=== PATIENT | female | born 1985 | race American Indian/Alaskan Native ===

== ENCOUNTER 2016-10-29 10:26 | Inpatient (IN) | payer MEDICAID ==
[2016-10-29] MEDS ORDERED: SUBLIMAZE IV PRN (12:23)
[2016-10-29] MEDS ORDERED: ZOFRAN IV PRN (12:23)
[2016-10-29] MEDS ORDERED: MINERAL OIL PO PRN (12:23)
[2016-10-29] MEDS ORDERED: BRETHINE SUB-Q PRN (13:04)
[2016-10-29] MEDS ORDERED: ePHEDrine SULFATE IV PRN ×2 (13:05→18:36)
--- NOTE | 2016-10-29 13:31 | History and Physical Report ---
History of Present Illness Date of examination: 10/29/16 (IOL @ 41 weeks) Date of admission: 10/29/16 10:26 History of present illness: EDC Confirmation: 10/19/2016 Gestational Age: 12 weeks Past History : 6 Term Births: 4 Living Children: 4 # 5 Delivery date: 02/08/2015 Weeks Gestation: 39 labor: no Delivery type: Anesthesia type: epidural Delivery location: [place] Infant Sex: Male weight: 7-3 Name: Norris Bull 3rd Past Medical History: prob Graves disease--no meds Past Surgical History: negative Past Medical History Anesthesia Complications: negative Anemia: negative Autoimmune Disorder: negative Bleeding Disorder: negative Blood Transfusions: negative Breast Disease: negative Diabetes: negative Heart Disease: negative Hypertension: negative Hepatitis/Liver Disease: negative Kidney Disease/UTI: negative Neurologic/Epilepsy/Migraines: negative Phlebitis/Varicosities: negative Psychiatric: negative Pulmonary Disease/Asthma: negative Thyroid Disease: negative Hospitalizations: negative Surgery (Non-hollock maker): negative Abnormal PAP: negative RUSH Exposure: negative Infertility: negative Uterine Anomaly: negative Uterine Surgery (not C/S): negative Other Gynecologic Problems: negative Social Hx: Patient is Real Estate Infection History Hx of STD: none HIV Risk Eval: low risk Hepatitis B Risk Eval: low risk Personal hx. of genital herpes: no Partner hx. of genital herpes: no Rash, Viral, or Febrile illness since last LMP? no Varicella/Chicken Pox Status: Previous Disease TB Risk: no Genetic History Congenital Heart Defect: Mom: no Dad: no Yaneth Disease: Mom: no Dad: no Thalassemia Mom: no Dad: no Neural Tube Defect Mom: no Dad: no Down's Syndrome Mom: no Dad: no Gagandeep-Sachs Mom: no Dad: no Sickle Cell Disease/Trait Mom: no Dad: no Hemophilia Mom: no Dad: no Muscular Dystrophy Mom: no Dad: no Cystic Fibrosis Mom: no Dad: no Adalgisa Chorea Mom: no Dad: no Mental Retardation Mom: no Dad: no Fragile X Mom: no Dad: no Other Genetic/Chromosomal Disorder Mom: no Dad: no Child w/other defect Mom: no Dad: no Enviromental Exposures Xray Exposure: no Medication, drug, or alcohol use since LMP: no Chemical/Other Exposure: no Exposure to Cat Liter: no Occupational Exposure to Children: none Current Allergies (reviewed today): No known allergies Laboratory Results Date/Time Collected: 04/06/2016 Routine Urinalysis Protein: Negative Glucose: Negative Urine HCG: positive Review of Systems General Denies fever, chills, sweats, anorexia, fatigue, weakness, malaise, weight loss and sleep disorder. Denies nausea, vomiting, headache, swelling of legs, abdominal pain, vaginal discharge, vaginal bleeding and contractions. Denies vaginal discharge, incontinence, dysuria, hematuria, urinary frequency, amenorrhea, menorrhagia, abnormal vaginal bleeding, pelvic pain, genital sores, decreased libido, painful periods, painful sex, urinary urgency, hot flashes, vaginal dryness, vaginal itching and vaginal odor. CV Denies chest pains, palpitations, syncope, dyspnea on exertion, orthopnea, PND and peripheral edema. Resp Denies cough, dyspnea at rest, excessive sputum, hemoptysis, wheezing and pleurisy. GI Denies nausea, vomiting, diarrhea, constipation, change in bowel habits, abdominal pain, melena, hematochezia, jaundice, gas/bloating, indigestion/ heartburn, dysphagia and odynophagia. Endo Denies cold intolerance, heat intolerance, polydipsia, polyphagia, polyuria and unusual weight change. Breast Denies left breast lump, right breast lump, nipple discharge, bloody discharge from nipple, breast pain, abnormal mammogram and breast enlargement. MS Denies back pain, joint pain, joint swelling, muscle cramps, muscle weakness, stiffness, arthritis, sciatica, restless legs, leg pain at night and leg pain with exertion. Derm Denies rash, itching, dryness and suspicious lesions. Neuro Denies paralysis, paresthesias, headache, seizures, tremors, vertigo, transient blindness, frequent falls, frequent headaches and difficulty walking. Psych Denies depression, anxiety, irritability and mood swings. Eyes Denies blurring, diplopia, irritation, discharge, vision loss, eye pain and photophobia. ENT Denies earache, ear discharge, tinnitus, decreased hearing, nasal congestion, nosebleeds, sore throat and hoarseness. Allergy Denies urticaria, allergic rash, hay fever and recurrent infections. Heme Denies abnormal bruising, bleeding and enlarged lymph nodes. 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: No lesions, normal BUS, normal rugae Cervix: No lesions; no cervical motion tenderness Uterus: normal size and position, midline, mobile Adnexae: no masses or tenderness Rectovaginal: no masses or tenderness Past History - Obstetrical History Expected Date of Delivery: 10/19/16 Actual Gestation: 41 Week(s) 3 Day(s) : 6 Para: 4 Hx # Term Pregnancies: 4 Spontaneous Abortions: 1 Number of Living Children: 4 Medications and Allergies Allergies Allergy/AdvReac Type Severity Reaction Status Date / Time No Known Allergies Allergy Verified 09/03/13 14:05 Home Medications Medication Instructions Recorded Confirmed Last Taken Type Tablet 1 tab PO DAILY 10/29/16 10/29/16 10/28/16 10:00 History Active Meds: Active Medications Fentanyl (Sublimaze) 100 mcg IV Q2H PRN PRN Reason: Labor Pain Ampicillin Sodium (Polycillin/Ns 1 Gm/50 Ml) 1 gm in 50 mls @ 0 mls/hr IV Q4H GLORIA PRN Reason: Protocol Ampicillin Sodium (Polycillin/Ns 2 Gm/100 Ml) 2 gm in 100 mls @ 200 mls/hr IV ONCE ONE PRN Reason: Protocol Stop: 10/29/16 14:29 Lactated Ringer's (Lactated Ringers) 1,000 mls @ 125 mls/hr IV DIRECT GLORIA Oxytocin/Sodium Chloride (Pitocin/Ns 20 Unit/1000ml Drip) 20 unit in 1,000 mls @ 125 mls/hr IV DIRECT GLORIA Oxytocin/Sodium Chloride (Pitocin/Ns 30 Unit/500ml) 30 unit in 500 mls @ 0 mls/ hr IV Q30MIN GLORIA PRN Reason: Protocol Lidocaine (Xylocaine 2%) 20 ml INFILTRATI ONCE ONE Stop: 02/02/17 14:01 Mineral Oil (Mineral Oil) 30 ml PO QHS PRN PRN Reason: Constipation Ondansetron HCl (Zofran) 4 mg IV Q8H PRN PRN Reason: Nausea And Vomiting - Vital Signs Vital signs: Vital Signs Pulse BP 83 129/76 10/29/16 11:49 10/29/16 11:49 Temp Pulse Resp BP Pulse Ox 98.2 F 98 H 18 129/76 10/29/16 11:50 10/29/16 11:50 10/29/16 11:50 10/29/16 11:50 - Physical Exam Breasts: Positive: deferred Cardiovascular: Regular rate, Normal S1, Normal S2 Lungs: Positive: Normal air movement Abdomen: Positive: normal appearance, soft, normal bowel sounds. Negative: distention, tenderness Genitourinary (Female): Positive: normal external genitalia Vulva: both: normal Vagina: Positive: normal moisture. Negative: discharge Cervix: Negative: lesion, discharge Uterus: Positive: normal size, normal contour Adnexa: both: normal Anus/Rectum: Positive: normal perianal skin, heme negative. Negative: rectal mass, hemorrhoids Extremities: Deep Tendon Reflex Grade: Normal +2 - Obstetrical FHR: category 1 Uterine Contraction Monitor Mode: External Cervical Dilatation: 4 Cervical Effacement Percentage: 70 station: -2 Uterine Contraction Pattern: Irregular Uterine Contraction Intensity: Mild Results All other labs normal. Laboratory Data-Patient Name: KALLIE PÉREZ Test Date Result Blood Type 04/06/2016 O Rh 04/06/2016 Positive Antibody Screen Rubella 04/06/2016 IMMUNE Serology (RPR) 09/16/2016 NR HBsAg 04/06/2016 Negative Hemoglobin 06/29/2016 11.1 Hematocrit 06/29/2016 34.0 Platelets 04/06/2016 260 [id number] Chlamydia DNA 04/06/2016 Negative GC DNA/Culture 04/06/2016 Urine Culture 05/06/2016 Final report Group B Strep cult 09/16/2016 POSITIVE PAP 05/20/2012 ASCUS HIV 09/16/2016 AFP/Quad Screen 03/28/2013 Glucola Test 05/31/2013 96 3hr GTT (Fasting) 1 hr 2 hr 3 hr OPTIONAL LABS-Patient Name:KALLIE PÉREZ Test Date Result Varicella Ab Sickle Cell 04/06/2016 Negative PPD Fibronectin Cystic Fibrosis Parvovirus TSH 09/16/2016 <0.006 uIU/mL Free T4 09/16/2016 1.60 Hepatitis C ALT AST Uric Acid Creatinine 24 hr Urine Protein ANTIONE Assessment and Plan - Patient Problems (1) Group B Streptococcus carrier state affecting Onset Date: ~09/16/16 Current Visit: Yes Status: Acute Plan to address problem: Ampicillin started (2) 41 weeks gestation of Current Visit: Yes Status: Acute Plan to address problem: 30yo @ 41w3d for IOL GBS+ Ampicillin orders in EMR. All orders in EMR. (3) Hyperthyroidism Current Visit: Yes Status: Acute Plan to address problem: Thyroid studies ordered
[2016-10-29 13:37] LABS: Hematocrit 33.7 % (30.3-42.9); Mean Corpuscular HGB Conc 33 % (30-34); Mean Corpuscular Hemoglobin 27 pg (28-32); Mean Corpuscular Volume 82 fl (79-97); Platelet Count 268 K/mm3 (140-440); Red Blood Count 4.13 M/mm3 (3.65-5.03); Red Cell Distribution Width 13.6 % (13.2-15.2); White Blood Count 7.9 K/mm3 (4.5-11.0)
[2016-10-29] MEDS: LACTATED RINGERS 1,000 ML IV SCH ×3 (13:41→21:30)
[2016-10-29] MEDS: PITOCin/NS 30 UNIT/500ML 30 UNIT/500 ML BAG IV SCH ×5 (13:50→19:16)
[2016-10-29] MEDS ORDERED: POLYCILLIN/NS 2 GM/100 ML 2 GM/100 ML BAG IV ONE (14:00)
[2016-10-29] MEDS ORDERED: XYLOCAINE 2% INFILTRATI ONE (14:00)
--- NOTE | 2016-10-29 16:21 | Progress Note ---
Assessment and Plan pt w/o complaint BP 140/70s FHR Category 1 SVE 4,70,-1 SROM clear fluid ISE/ IUPC placed. Pit @ 16mu Re-eval as needed - Patient Problems (1) Group B Streptococcus carrier state affecting Onset Date: ~09/16/16 Current Visit: Yes Status: Acute (2) 41 weeks gestation of Current Visit: Yes Status: Acute (3) Hyperthyroidism Current Visit: Yes Status: Acute Subjective - Subjective Date of service: 10/29/16 (SROM clear ) Interval history: EDC Confirmation: 10/19/2016 Gestational Age: 12 weeks Past History : 6 Term Births: 4 Living Children: 4 # 5 Delivery date: 02/08/2015 Weeks Gestation: 39 labor: no Delivery type: Anesthesia type: epidural Delivery location: [place] Infant Sex: Male weight: 7-3 Name: Norris Christine Jorgito 3rd Past Medical History: prob Graves disease--no meds Past Surgical History: negative Past Medical History Anesthesia Complications: negative Anemia: negative Autoimmune Disorder: negative Bleeding Disorder: negative Blood Transfusions: negative Breast Disease: negative Diabetes: negative Heart Disease: negative Hypertension: negative Hepatitis/Liver Disease: negative Kidney Disease/UTI: negative Neurologic/Epilepsy/Migraines: negative Phlebitis/Varicosities: negative Psychiatric: negative Pulmonary Disease/Asthma: negative Thyroid Disease: negative Hospitalizations: negative Surgery (Non-ob/gyn): negative Abnormal PAP: negative RUSH Exposure: negative Infertility: negative Uterine Anomaly: negative Uterine Surgery (not C/S): negative Other Gynecologic Problems: negative Social Hx: Patient is Real Estate Infection History Hx of STD: none HIV Risk Eval: low risk Hepatitis B Risk Eval: low risk Personal hx. of genital herpes: no Partner hx. of genital herpes: no Rash, Viral, or Febrile illness since last LMP? no Varicella/Chicken Pox Status: Previous Disease TB Risk: no Genetic History Congenital Heart Defect: Mom: no Dad: no Yaneth Disease: Mom: no Dad: no Thalassemia Mom: no Dad: no Neural Tube Defect Mom: no Dad: no Down's Syndrome Mom: no Dad: no Gagandeep-Sachs Mom: no Dad: no Sickle Cell Disease/Trait Mom: no Dad: no Hemophilia Mom: no Dad: no Muscular Dystrophy Mom: no Dad: no Cystic Fibrosis Mom: no Dad: no Adalgisa Chorea Mom: no Dad: no Mental Retardation Mom: no Dad: no Fragile X Mom: no Dad: no Other Genetic/Chromosomal Disorder Mom: no Dad: no Child w/other defect Mom: no Dad: no Enviromental Exposures Xray Exposure: no Medication, drug, or alcohol use since LMP: no Chemical/Other Exposure: no Exposure to Cat Liter: no Occupational Exposure to Children: none Current Allergies (reviewed today): No known allergies Laboratory Results Date/Time Collected: 04/06/2016 Routine Urinalysis Protein: Negative Glucose: Negative Urine HCG: positive Review of Systems General Denies fever, chills, sweats, anorexia, fatigue, weakness, malaise, weight loss and sleep disorder. Denies nausea, vomiting, headache, swelling of legs, abdominal pain, vaginal discharge, vaginal bleeding and contractions. Denies vaginal discharge, incontinence, dysuria, hematuria, urinary frequency, amenorrhea, menorrhagia, abnormal vaginal bleeding, pelvic pain, genital sores, decreased libido, painful periods, painful sex, urinary urgency, hot flashes, vaginal dryness, vaginal itching and vaginal odor. CV Denies chest pains, palpitations, syncope, dyspnea on exertion, orthopnea, PND and peripheral edema. Resp Denies cough, dyspnea at rest, excessive sputum, hemoptysis, wheezing and pleurisy. GI Denies nausea, vomiting, diarrhea, constipation, change in bowel habits, abdominal pain, melena, hematochezia, jaundice, gas/bloating, indigestion/ heartburn, dysphagia and odynophagia. Endo Denies cold intolerance, heat intolerance, polydipsia, polyphagia, polyuria and unusual weight change. Breast Denies left breast lump, right breast lump, nipple discharge, bloody discharge from nipple, breast pain, abnormal mammogram and breast enlargement. MS Denies back pain, joint pain, joint swelling, muscle cramps, muscle weakness, stiffness, arthritis, sciatica, restless legs, leg pain at night and leg pain with exertion. Derm Denies rash, itching, dryness and suspicious lesions. Neuro Denies paralysis, paresthesias, headache, seizures, tremors, vertigo, transient blindness, frequent falls, frequent headaches and difficulty walking. Psych Denies depression, anxiety, irritability and mood swings. Eyes Denies blurring, diplopia, irritation, discharge, vision loss, eye pain and photophobia. ENT Denies earache, ear discharge, tinnitus, decreased hearing, nasal congestion, nosebleeds, sore throat and hoarseness. Allergy Denies urticaria, allergic rash, hay fever and recurrent infections. Heme Denies abnormal bruising, bleeding and enlarged lymph nodes. 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, normal BUS, normal rugae Cervix: No lesions; no cervical motion tenderness Uterus: normal size and position, midline, mobile Adnexae: no masses or tenderness Rectovaginal: no masses or tenderness Patient reports: movement normal Objective - Vital Signs Vital Signs: Vital Signs - 12hr 10/29/16 10/29/16 10/29/16 11:49 11:50 13:51 Temperature 98.2 F Pulse Rate 83 93 H Pulse Rate [ 98 H From Monitor] Respiratory 18 Rate Blood Pressure 129/76 145/88 Blood Pressure 129/76 [Left Arm] 10/29/16 10/29/16 14:25 16:02 Temperature Pulse Rate 89 87 Pulse Rate [ 89 From Monitor] Respiratory 18 Rate Blood Pressure 137/82 141/77 Blood Pressure 137/82 [Left Arm] - Exam Breasts: deferred Cardiovascular: Regular rate Lungs: Normal air movement Abdomen: Present: normal appearance, soft, normal bowel sounds. Absent: distention, tenderness Uterus: Present: normal FHR: auscultation normal, category 1 Uterine Contraction Monitor Mode: Internal Cervical Dilatation: 4 (ISE/IUPC) Cervical Effacement Percentage: 70 station: -1 Uterine Contraction Pattern: Regular Uterine Contraction Intensity: Moderate Extremities: normal Deep Tendon Reflex Grade: Normal +2 - Labs Labs: Abnormal Labs 10/29/16 10/29/16 10/29/16 13:05 13:35 13:35 MCH 27 L TSH Free T4 1.67 H Crossmatch See Detail 10/29/16 13:35 MCH TSH < 0.005 L Free T4 Crossmatch Laboratory Results - last 24 hr 10/29/16 10/29/16 10/29/16 13:05 13:35 13:35 WBC 7.9 RBC 4.13 Hgb 11.0 Hct 33.7 MCV 82 MCH 27 L MCHC 33 RDW 13.6 Plt Count 268 TSH Free T4 1.67 H Blood Type O POSITIVE Antibody Screen Positive Antibody Identification Anti-E Crossmatch See Detail 10/29/16 13:35 WBC RBC Hgb Hct MCV MCH MCHC RDW Plt Count TSH < 0.005 L Free T4 Blood Type Antibody Screen Antibody Identification Crossmatch
[2016-10-29] MEDS ORDERED: POLYCILLIN/NS 1 GM/50 ML 1 GM/50 ML BAG IV SCH (16:24)
[2016-10-29] MEDS ORDERED: ePHEDrine SULFATE ONE (17:47)
--- NOTE | 2016-10-29 18:33 | Anesthesia Consultation ---
Anesthesia Consult and Med Hx Date of service: 10/29/16 - Airway Anesthetic Teeth Evaluation: Good ROM Head & Neck: Adequate Mental/Hyoid Distance: Adequate Intubation Access Assessment: Probably Good - Pre-Operative Health Status ASA Pre-Surgery Classification: ASA2, Emergency Proposed Anesthetic Plan: Epidural, Spinal - Pulmonary Hx Asthma: No COPD: No Hx Pneumonia: No - Cardiovascular System Hx Hypertension: No - Central Nervous System Hx Seizures: No Hx Psychiatric Problems: No - Endocrine Hx Renal Disease: No Hx End Stage Renal Disease: No Hx Hypothyroidism: No Hx Hyperthyroidism: Yes (was on meds, but stopped it 1 mo. ago) - Hematic Hx Anemia: No Hx Sickle Cell Disease: No - Other Systems Hx Alcohol Use: Yes (rarely)
[2016-10-29] MEDS ORDERED: NARCAN 2 MG/2 ML IV PRN (18:36)
--- NOTE | 2016-10-29 18:51 | Progress Note ---
Assessment and Plan SVE 5-6,90,-1 Pitocin 30mu Ctx q 2,50,moderate Continue pit and anticipate delivery. - Patient Problems (1) Group B Streptococcus carrier state affecting Onset Date: ~09/16/16 Current Visit: Yes Status: Acute (2) 41 weeks gestation of Current Visit: Yes Status: Acute (3) Hyperthyroidism Current Visit: Yes Status: Acute Subjective - Subjective Date of service: 10/29/16 (pt comfortable with epidural) Interval history: EDC Confirmation: 10/19/2016 Gestational Age: 12 weeks Past History : 6 Term Births: 4 Living Children: 4 # 5 Delivery date: 02/08/2015 Weeks Gestation: 39 labor: no Delivery type: Anesthesia type: epidural Delivery location: [place] Sex: Male weight: 7-3 Name: Norris Bull 3rd Past Medical History: prob Graves disease--no meds Past Surgical History: negative Past Medical History Anesthesia Complications: negative Anemia: negative Autoimmune Disorder: negative Bleeding Disorder: negative Blood Transfusions: negative Breast Disease: negative Diabetes: negative Heart Disease: negative Hypertension: negative Hepatitis/Liver Disease: negative Kidney Disease/UTI: negative Neurologic/Epilepsy/Migraines: negative Phlebitis/Varicosities: negative Psychiatric: negative Pulmonary Disease/Asthma: negative Thyroid Disease: negative Hospitalizations: negative Surgery (Non-ostomy rn): negative Abnormal PAP: negative RUSH Exposure: negative Infertility: negative Uterine Anomaly: negative Uterine Surgery (not C/S): negative Other Gynecologic Problems: negative Social Hx: Patient is Real Estate Infection History Hx of STD: none HIV Risk Eval: low risk Hepatitis B Risk Eval: low risk Personal hx. of genital herpes: no Partner hx. of genital herpes: no Rash, Viral, or Febrile illness since last LMP? no Varicella/Chicken Pox Status: Previous Disease TB Risk: no Genetic History Congenital Heart Defect: Mom: no Dad: no Yaneth Disease: Mom: no Dad: no Thalassemia Mom: no Dad: no Neural Tube Defect Mom: no Dad: no Down's Syndrome Mom: no Dad: no Gagandeep-Sachs Mom: no Dad: no Sickle Cell Disease/Trait Mom: no Dad: no Hemophilia Mom: no Dad: no Muscular Dystrophy Mom: no Dad: no Cystic Fibrosis Mom: no Dad: no Adalgisa Chorea Mom: no Dad: no Mental Retardation Mom: no Dad: no Fragile X Mom: no Dad: no Other Genetic/Chromosomal Disorder Mom: no Dad: no Child w/other defect Mom: no Dad: no Enviromental Exposures Xray Exposure: no Medication, drug, or alcohol use since LMP: no Chemical/Other Exposure: no Exposure to Cat Liter: no Occupational Exposure to Children: none Current Allergies (reviewed today): No known allergies Laboratory Results Date/Time Collected: 04/06/2016 Routine Urinalysis Protein: Negative Glucose: Negative Urine HCG: positive Review of Systems General Denies fever, chills, sweats, anorexia, fatigue, weakness, malaise, weight loss and sleep disorder. Denies nausea, vomiting, headache, swelling of legs, abdominal pain, vaginal discharge, vaginal bleeding and contractions. Denies vaginal discharge, incontinence, dysuria, hematuria, urinary frequency, amenorrhea, menorrhagia, abnormal vaginal bleeding, pelvic pain, genital sores, decreased libido, painful periods, painful sex, urinary urgency, hot flashes, vaginal dryness, vaginal itching and vaginal odor. CV Denies chest pains, palpitations, syncope, dyspnea on exertion, orthopnea, PND and peripheral edema. Resp Denies cough, dyspnea at rest, excessive sputum, hemoptysis, wheezing and pleurisy. GI Denies nausea, vomiting, diarrhea, constipation, change in bowel habits, abdominal pain, melena, hematochezia, jaundice, gas/bloating, indigestion/ heartburn, dysphagia and odynophagia. Endo Denies cold intolerance, heat intolerance, polydipsia, polyphagia, polyuria and unusual weight change. Breast Denies left breast lump, right breast lump, nipple discharge, bloody discharge from nipple, breast pain, abnormal mammogram and breast enlargement. MS Denies back pain, joint pain, joint swelling, muscle cramps, muscle weakness, stiffness, arthritis, sciatica, restless legs, leg pain at night and leg pain with exertion. Derm Denies rash, itching, dryness and suspicious lesions. Neuro Denies paralysis, paresthesias, headache, seizures, tremors, vertigo, transient blindness, frequent falls, frequent headaches and difficulty walking. Psych Denies depression, anxiety, irritability and mood swings. Eyes Denies blurring, diplopia, irritation, discharge, vision loss, eye pain and photophobia. ENT Denies earache, ear discharge, tinnitus, decreased hearing, nasal congestion, nosebleeds, sore throat and hoarseness. Allergy Denies urticaria, allergic rash, hay fever and recurrent infections. Heme Denies abnormal bruising, bleeding and enlarged lymph nodes. 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 Vulva/Vagina: No lesions, normal BUS, normal rugae Cervix: No lesions; no cervical motion tenderness Uterus: normal size and position, midline, mobile Adnexae: no masses or tenderness Rectovaginal: no masses or tenderness Patient reports: movement normal Objective - Vital Signs Vital Signs: Vital Signs - 12hr 10/29/16 10/29/16 10/29/16 11:49 11:50 13:51 Temperature 98.2 F Pulse Rate 83 93 H Pulse Rate [ 98 H From Monitor] Respiratory 18 Rate Blood Pressure 129/76 145/88 Blood Pressure 129/76 [Left Arm] 10/29/16 10/29/16 10/29/16 14:25 16:02 18:08 Temperature Pulse Rate 89 87 117 H Pulse Rate [ 89 From Monitor] Respiratory 18 Rate Blood Pressure 137/82 141/77 170/101 Blood Pressure 137/82 [Left Arm] 10/29/16 10/29/16 10/29/16 18:09 18:13 18:18 Temperature Pulse Rate 117 H 115 H 116 H Pulse Rate [ From Monitor] Respiratory Rate Blood Pressure 148/90 147/82 169/91 Blood Pressure [Left Arm] 10/29/16 10/29/16 10/29/16 18:24 18:28 18:33 Temperature Pulse Rate 115 H 114 H 112 H Pulse Rate [ From Monitor] Respiratory Rate Blood Pressure 185/87 183/72 158/115 Blood Pressure [Left Arm] 10/29/16 10/29/16 10/29/16 18:34 18:38 18:44 Temperature Pulse Rate 104 H 112 H 109 H Pulse Rate [ From Monitor] Respiratory Rate Blood Pressure 152/72 147/83 131/69 Blood Pressure [Left Arm] 10/29/16 18:48 Temperature Pulse Rate 114 H Pulse Rate [ From Monitor] Respiratory Rate Blood Pressure 128/70 Blood Pressure [Left Arm] - Exam Breasts: deferred Cardiovascular: Regular rate Lungs: Normal air movement Abdomen: Present: normal appearance, soft. Absent: distention, tenderness Uterus: Present: normal FHR: auscultation normal, category 1 Uterine Contraction Monitor Mode: Internal Cervical Dilatation: 5.5 Cervical Effacement Percentage: 90 station: -1 Uterine Contraction Pattern: Regular Uterine Contraction Intensity: Moderate Extremities: normal Deep Tendon Reflex Grade: Normal +2 - Labs Labs: Abnormal Labs 10/29/16 10/29/16 10/29/16 13:05 13:35 13:35 MCH 27 L TSH Free T4 1.67 H Crossmatch See Detail 10/29/16 13:35 MCH TSH < 0.005 L Free T4 Crossmatch Laboratory Results - last 24 hr 10/29/16 10/29/16 10/29/16 13:05 13:35 13:35 WBC 7.9 RBC 4.13 Hgb 11.0 Hct 33.7 MCV 82 MCH 27 L MCHC 33 RDW 13.6 Plt Count 268 TSH Free T4 1.67 H Blood Type O POSITIVE Antibody Screen Positive Antibody Identification Anti-E Crossmatch See Detail 10/29/16 13:35 WBC RBC Hgb Hct MCV MCH MCHC RDW Plt Count TSH < 0.005 L Free T4 Blood Type Antibody Screen Antibody Identification Crossmatch
[2016-10-29] MEDS ORDERED: fentaNYL-BUPIV 2 MCG/ML-0.125% 200 MCG/100 ML BAG EPIDURAL SCH (19:00)
--- NOTE | 2016-10-29 19:33 | Event Note ---
Date: 10/29/16 Head compression noted SVE 7,80,-2 Anesthesia called to redose epidural Report to
[2016-10-29] MEDS ORDERED: XYLOCAINE MPF 2% ONE (19:36)
--- NOTE | 2016-10-29 20:16 | Progress Note ---
Assessment and Plan - Patient Problems (1) 41 weeks gestation of Current Visit: Yes Status: Acute (2) Group B Streptococcus carrier state affecting Onset Date: ~09/16/16 Current Visit: Yes Status: Acute (3) Hyperthyroidism Current Visit: Yes Status: Acute Subjective - Subjective Date of service: 10/29/16 Patient reports: movement normal Objective - Vital Signs Vital Signs: Vital Signs - 12hr 10/29/16 10/29/16 10/29/16 11:49 11:50 13:51 Temperature 98.2 F Pulse Rate 83 93 H Pulse Rate [ 98 H From Monitor] Respiratory 18 Rate Blood Pressure 129/76 145/88 Blood Pressure 129/76 [Left Arm] 10/29/16 10/29/16 10/29/16 14:25 16:02 18:08 Temperature Pulse Rate 89 87 117 H Pulse Rate [ 89 From Monitor] Respiratory 18 Rate Blood Pressure 137/82 141/77 170/101 Blood Pressure 137/82 [Left Arm] 10/29/16 10/29/16 10/29/16 18:09 18:13 18:18 Temperature Pulse Rate 117 H 115 H 116 H Pulse Rate [ From Monitor] Respiratory Rate Blood Pressure 148/90 147/82 169/91 Blood Pressure [Left Arm] 10/29/16 10/29/16 10/29/16 18:24 18:28 18:33 Temperature Pulse Rate 115 H 114 H 112 H Pulse Rate [ From Monitor] Respiratory Rate Blood Pressure 185/87 183/72 158/115 Blood Pressure [Left Arm] 10/29/16 10/29/16 10/29/16 18:34 18:38 18:44 Temperature Pulse Rate 104 H 112 H 109 H Pulse Rate [ From Monitor] Respiratory Rate Blood Pressure 152/72 147/83 131/69 Blood Pressure [Left Arm] 10/29/16 10/29/16 10/29/16 18:48 18:53 18:58 Temperature Pulse Rate 114 H 112 H 106 H Pulse Rate [ From Monitor] Respiratory Rate Blood Pressure 128/70 128/69 116/66 Blood Pressure [Left Arm] 10/29/16 10/29/16 10/29/16 19:03 19:10 19:12 Temperature Pulse Rate 106 H 95 H Pulse Rate [ From Monitor] Respiratory 18 Rate Blood Pressure 132/77 160/93 Blood Pressure [Left Arm] 10/29/16 10/29/1610/29/17 19:14 19:19 19:20 Temperature 98.3 F Pulse Rate 104 H 108 H Pulse Rate [ From Monitor] Respiratory 18 Rate Blood Pressure 158/95 142/88 Blood Pressure [Left Arm] 10/29/16 10/29/16 10/29/16 19:36 19:51 20:06 Temperature Pulse Rate 104 H 122 H 112 H Pulse Rate [ From Monitor] Respiratory Rate Blood Pressure 140/84 138/83 108/66 Blood Pressure [Left Arm] - Exam Abdomen: Present: normal appearance Vulva: both: normal FHR: category 2 Uterine Contraction Monitor Mode: Internal Cervical Dilatation: 10 Cervical Effacement Percentage: 100 station: +2 Uterine Contraction Pattern: Regular Extremities: edema (1+) - Labs Labs: Abnormal Labs 10/29/16 10/29/16 10/29/16 13:05 13:35 13:35 MCH 27 L TSH Free T4 1.67 H Crossmatch See Detail 10/29/16 13:35 MCH TSH < 0.005 L Free T4 Crossmatch Laboratory Results - last 24 hr 10/29/16 10/29/16 10/29/16 13:05 13:35 13:35 WBC 7.9 RBC 4.13 Hgb 11.0 Hct 33.7 MCV 82 MCH 27 L MCHC 33 RDW 13.6 Plt Count 268 TSH Free T4 1.67 H Blood Type O POSITIVE Antibody Screen Positive Antibody Identification Anti-E Crossmatch See Detail 10/29/16 13:35 WBC RBC Hgb Hct MCV MCH MCHC RDW Plt Count TSH < 0.005 L Free T4 Blood Type Antibody Screen Antibody Identification Crossmatch
[2016-10-29] MEDS: PITOCin/NS 20 UNIT/1000ML DRIP 20 UNIT/1,000 ML BAG IV SCH ×2 (21:37→23:15)
[2016-10-29] MEDS ORDERED: TAPAZOLE PO SCH (22:00)
[2016-10-29] MEDS: TAPAZOLE PO SCH (22:22)
[2016-10-29] MEDS ORDERED: TORADOL IV ONE ×2 (23:12→23:15)
[2016-10-29 23:16] LABS: Bilirubin,Urine NEG (Negative); Blood,Urine MOD (Negative); Hematocrit 30.6 % (30.3-42.9); Ketones,Urine 80 mg/dL (Negative); Leukocyte Esterase,Urine SM (Negative); Mean Corpuscular HGB Conc 33 % (30-34); Mean Corpuscular Hemoglobin 27 pg (28-32); Mean Corpuscular Volume 82 fl (79-97); Mucus,Urine FEW /HPF; Nitrite,Urine NEG (Negative); Platelet Count 217 K/mm3 (140-440); Red Blood Count 3.74 M/mm3 (3.65-5.03); Red Cell Distribution Width 13.8 % (13.2-15.2); Urobilinogen,Urine < 2.0 mg/dL (<2.0); White Blood Count 14.1 K/mm3 (4.5-11.0)
[2016-10-29 23:28] LABS: RBC,Urine > 182.0 /HPF (0.0-6.0)
[2016-10-29 23:35] LABS: Alanine Aminotransferase 8 units/L (7-56); Lactate Dehydrogenase 136 units/L (91-180); Uric Acid 5.8 mg/dL (3.5-7.6)
[2016-10-30] MEDS ORDERED: BENADRYL PO PRN (00:05)
[2016-10-30] MEDS ORDERED: TORADOL IV PRN (00:05)
[2016-10-30] MEDS ORDERED: SODIUM CHLORIDE FLUSH SYRINGE 10 ML IV PRN (00:05)
[2016-10-30] MEDS ORDERED: ZOFRAN IV PRN (00:05)
[2016-10-30] MEDS ORDERED: PHENERGAN PO PRN (00:05)
[2016-10-30] MEDS ORDERED: MILK OF MAGNESIA PO PRN (00:05)
[2016-10-30] MEDS ORDERED: DERMOPLAST TP PRN (00:05)
[2016-10-30] MEDS ORDERED: DULCOLAX PR PRN (00:05)
[2016-10-30] MEDS ORDERED: TUCKS PAD TP PRN (00:05)
[2016-10-30] MEDS ORDERED: TYLENOL PO PRN (00:05)
[2016-10-30] MEDS ORDERED: LANSINOH TP PRN (00:05)
[2016-10-30] MEDS ORDERED: PHENERGAN PR PRN (00:05)
[2016-10-30] MEDS: MOTRIN PO SCH ×4 (00:40→18:30)
[2016-10-30] MEDS: PERCOCET 5/325 PO PRN ×2 (01:26→19:53)
[2016-10-30] MEDS ORDERED: BOOSTRIX IM ONE (06:00)
[2016-10-30] MEDS: TAPAZOLE PO SCH ×3 (06:03→22:30)
--- NOTE | 2016-10-30 08:51 | Progress Note ---
Assessment and Plan Patient doing well, no complaints. Lochia scant, VSS, afebrile. Pre -e labs reviewed NL except small protein in UA (also had moderate blood). H&H stable @ 07/26. Continue pathway, anticipate d/c home if stable tomorrow. - Patient Problems (1) (normal spontaneous vaginal delivery) Current Visit: No Status: Acute Subjective - Subjective Date of service: 10/30/16 Principal diagnosis: day # 1 s/p Patient reports: appetite normal, voiding normally, pain well controlled, ambulating normally, no dizzy ambulation, no nauseated [place]: doing well, nursing well Objective - Vital Signs Latest vital signs: Vital Signs Temp Pulse Pulse Resp BP BP 10/30/16 05:40 98.1 F 78 18 126/67 10/29/16 23:40 98.5 F 100 H 18 150/79 10/29/16 23:21 80 153/83 10/29/16 23:06 102 H 157/89 10/29/16 22:51 97 H 149/85 10/29/16 22:36 108 H 144/72 10/29/16 22:21 104 H 155/93 10/29/16 22:06 109 H 156/74 10/29/16 21:51 110 H 186/82 10/29/16 21:36 104 H 132/68 10/29/16 21:21 113 H 141/73 10/29/16 21:06 96 H 142/67 10/29/16 20:51 95 H 137/63 10/29/16 20:36 122 H 124/73 10/29/16 20:21 105 H 129/72 10/29/16 20:06 112 H 108/66 10/29/16 19:51 122 H 138/83 10/29/16 19:36 104 H 140/84 10/29/16 19:20 98.3 F 18 10/29/16 19:19 108 H 142/88 10/29/16 19:14 104 H 158/95 10/29/16 19:12 18 10/29/16 19:10 95 H 160/93 10/29/16 19:03 106 H 132/77 10/29/16 18:58 106 H 116/66 10/29/16 18:53 112 H 128/69 10/29/16 18:48 114 H 128/70 10/29/16 18:44 109 H 131/69 10/29/16 18:38 112 H 147/83 10/29/16 18:34 104 H 152/72 10/29/16 18:33 112 H 158/115 10/29/16 18:28 114 H 183/72 10/29/16 18:24 115 H 185/87 10/29/16 18:18 116 H 169/91 10/29/16 18:13 115 H 147/82 10/29/16 18:09 117 H 148/90 10/29/16 18:08 117 H 170/101 10/29/16 16:02 87 141/77 10/29/16 14:25 89 89 18 137/82 137/82 10/29/16 13:51 93 H 145/88 10/29/16 11:50 98.2 F 98 H 18 129/76 10/29/16 11:49 83 129/76 Intake and Output 10/29/16 10/30/16 10/30/16 22:59 06:59 14:59 Intake Total 240 5882 375 Output Total 400 1100 Balance -160 4782 375 Intake: IV 2750 375 Lactated Ringers 1,000 ml 1000 @ 125 mls/hr IV DIRECT GLORIA Rx#:[id number] PITOCin/NS 20 UNIT/1000ML 1500 375 DRIP 20 unit In 1,000 ml @ 125 mls/hr IV DIRECT GLORIA Rx#:[id number] PITOCin/NS 30 UNIT/500ML 250 30 unit In 500 ml @ 0 mls /hr IV Q30MIN GLORIA Rx#: [id number] Oral 240 Intake, Free Water 120 Other 3012 Output: Urine 400 1100 Indwelling Catheter 600 Void 400 500 Other: Intake, Other Source Saline Solution Total, Intake Amount 240 3012 Total, Output Amount 400 500 Estimated Blood Loss 400 - Exam Breasts: Present: normal Cardiovascular: Present: Regular rate Lungs: Present: Clear to auscultation, Normal air movement Abdomen: Present: normal appearance, soft Uterus: Present: normal, firm Extremities: Present: normal - Labs Labs: Abnormal lab results 10/29/16 10/29/16 10/29/16 Range/Units 13:05 13:35 13:35 WBC (4.5-11.0) K/mm3 Hgb (10.1-14.3) gm/dl MCH 27 L (28-32) pg Creatinine (0.7-1.2) mg/dL TSH (0.270-4.200) mlU/mL Free T4 1.67 H (0.76-1.46) ng/dL Urine WBC (Auto) (0.0-6.0) /HPF Crossmatch See Detail 10/29/16 10/29/16 10/29/16 Range/Units 13:35 22:50 22:50 WBC 14.1 H (4.5-11.0) K/mm3 Hgb 10.0 L (10.1-14.3) gm/dl MCH 27 L (28-32) pg Creatinine (0.7-1.2) mg/dL TSH < 0.005 L (0.270-4.200) mlU/mL Free T4 (0.76-1.46) ng/dL Urine WBC (Auto) 12.0 H (0.0-6.0) /HPF Crossmatch 10/29/16 Range/Units 22:50 WBC (4.5-11.0) K/mm3 Hgb (10.1-14.3) gm/dl MCH (28-32) pg Creatinine 0.4 L (0.7-1.2) mg/dL TSH (0.270-4.200) mlU/mL Free T4 (0.76-1.46) ng/dL Urine WBC (Auto) (0.0-6.0) /HPF Crossmatch
[2016-10-30 10:27] LABS: Hematocrit 27.4 % (30.3-42.9)
[2016-10-30] MEDS ORDERED: FLUARIX QUAD 2016-2017(36 MOS+) IM ONE (12:00)
--- NOTE | 2016-10-30 14:01 | Progress Note ---
Subjective Date of service: 10/29/16 Principal diagnosis: day # 1 s/p Interval history: 1 Day post-delivery with epidural. Patient states tolerated epidural well, pain is well controlled, no residual weakness in legs, minimal back pain, no anesthetic complications, and has been ambulating well. Objective - Constitutional Vitals: Vital Signs - 12hr 10/30/16 10/30/16 05:40 08:55 Temperature 98.1 F 98.3 F Pulse Rate [ 78 From Monitor] Pulse Rate [ 84 Right Radial] Respiratory 18 20 Rate Blood Pressure 126/67 [Left Arm] Blood Pressure 126/60 [Right Arm] - Labs CBC & Chem 7: 10/30/16 10:08 10/29/16 22:50 Labs: Abnormal lab results 10/29/16 10/29/16 10/29/16 Range/Units 13:05 13:35 13:35 WBC (4.5-11.0) K/mm3 Hgb (10.1-14.3) gm/dl Hct (30.3-42.9) % MCH (28-32) pg Creatinine (0.7-1.2) mg/dL TSH < 0.005 L (0.270-4.200) mlU/mL Free T4 1.67 H (0.76-1.46) ng/dL Urine WBC (Auto) (0.0-6.0) /HPF Crossmatch See Detail 10/29/16 10/29/16 10/29/16 Range/Units 22:50 22:50 22:50 WBC 14.1 H (4.5-11.0) K/mm3 Hgb 10.0 L (10.1-14.3) gm/dl Hct (30.3-42.9) % MCH 27 L (28-32) pg Creatinine 0.4 L (0.7-1.2) mg/dL TSH (0.270-4.200) mlU/mL Free T4 (0.76-1.46) ng/dL Urine WBC (Auto) 12.0 H (0.0-6.0) /HPF Crossmatch 10/30/16 Range/Units 10:08 WBC (4.5-11.0) K/mm3 Hgb 9.0 L (10.1-14.3) gm/dl Hct 27.4 L (30.3-42.9) % MCH (28-32) pg Creatinine (0.7-1.2) mg/dL TSH (0.270-4.200) mlU/mL Free T4 (0.76-1.46) ng/dL Urine WBC (Auto) (0.0-6.0) /HPF Crossmatch
[2016-10-31] MEDS: MOTRIN PO SCH ×3 (00:53→12:59)
[2016-10-31] MEDS: TAPAZOLE PO SCH (05:51)
[2016-10-31 09:01] VITALS: BP 144/78
--- NOTE | 2016-10-31 11:45 | Discharge Summary ---
Providers - Providers Date of Admission: 10/29/16 10:26 Date of discharge: 10/31/16 Attending physician: DARELL HUI 10/30/16 00:05 Consult to Septic Tank Cleaner [CONS] Routine Reason For Exam: assistance with , SNS Primary care physician: DARELL HUI Hospitalization Reason for admission: induction of labor at 41 weeks Pertinent studies: Hct 27 Procedures: vag del Hospital course: did well Disposition: DISCHARGED TO HOME OR SELFCARE - Discharge Diagnoses (1) 41 weeks gestation of Status: Acute (2) Group B Streptococcus carrier state affecting Status: Acute (3) Hyperthyroidism Status: Chronic (4) (normal spontaneous vaginal delivery) Status: Acute Core Measure Documentation - Palliative Care Palliative Care/ Comfort Measures: Not Applicable - Core Measures Any of the following diagnoses?: none Exam - Constitutional Vitals: Temp Pulse Resp BP Pulse Ox 98.5 F 79 24 144/78 10/31/16 07:54 10/31/16 07:54 10/31/16 07:54 10/31/16 07:54 General appearance: Present: no acute distress - EENT ENT: hearing intact - Respiratory Respiratory effort: normal - Cardiovascular Rhythm: regular - Extremities Extremities: no ischemia - Abdominal General gastrointestinal: Present: soft, non-tender - Integumentary Integumentary: Present: clear, warm, dry - Neurologic Neurologic: CNII-XII intact Plan Activity: no restrictions Weight Bearing Status: Full Weight Bearing Diet: regular Follow up with: DARELL HUI MD [Primary Care Provider] - 7 Days
[2016-10-31] MEDS: PERCOCET 5/325 PO PRN (13:00)
--- NOTE | 2016-11-02 09:49 | Procedure Note ---
OB Delivery Note - Delivery Date of Delivery: 10/29/16 Surgeon: DARELL UHI Estimated blood loss: other (400mL) - Vaginal Delivery presentation: vertex Delivery position: OP Intrapartum events: none Delivery induction: oxytocin Delivery augmentation: rupture of membranes, pitocin Delivery monitor: external FHT, external uterine, internal FHT, internal uterine Route of delivery: Delivery placenta: spontaneous (intact) Episiotomy: none Delivery laceration: none Anesthesia: epidural - A at 1 minute: 8 at 5 minutes: 9 Infant Gender: Female (7#9oz)
== END 2016-10-31 14:10 | disposition home or self-care (01) | DRG 775 ==
LOC: LD 10:26 → OB 10-30 00:01
PROVIDERS: ADMIT Obstetrics & Gynecology; ATTEND Obstetrics & Gynecology
PROC: 00HU33Z Insertion of Infusion Device into Spinal Canal, Percutaneous Approach (ICD-10-PCS; principal; 2016-10-29)
PROC: 3E033VJ Introduction of Other Hormone into Peripheral Vein, Percutaneous Approach (ICD-10-PCS; principal; 2016-10-29)
PROC: 3E0R3CZ (ICD-10-PCS; principal; 2016-10-29)
PROC: 10E0XZZ Delivery of Products of Conception, External Approach (ICD-10-PCS; principal; 2016-10-29)
DX: O99.824 Streptococcus B carrier state complicating childbirth (principal); O99.284 Endocrine, nutritional and metabolic diseases complicating childbirth; E05.90 Thyrotoxicosis, unspecified without thyrotoxic crisis or storm; Z3A.41 41 weeks gestation of pregnancy; Z37.0 Single live birth
CPT/HCPCS: 36415; 81001; 82565; 83615; 84439; 84443; 84450; 84460; 84550; 85014; 85018; 85027; 86592; 86850; 86870; 86900; 86901; 86922; 90471; 90686; 90715; 99211; A6250; G0463; J0290; J1885; J2405; J2590; J3010; J7120